=== PATIENT | female | born 1975 | race American Indian/Alaskan Native ===

== ENCOUNTER 2017-08-02 10:47 | Outpatient (CLI) | payer BC ==
--- NOTE | 2017-08-02 11:30 | Mammography Report ---
BILATERAL MAMMOGRAM: FINDINGS: The breast tissue is heterogeneously dense, which could obscure detection of small masses (approximately 50%-75% glandular). No mass, distortion, suspicious calcification, or skin change is seen. CAD was utilized. IMPRESSION: Negative mammogram. There is no mammographic evidence of malignancy. RECOMMENDATION: Follow-up per ACS guidelines. BI-RADS CATEGORY: 1 = Negative ACR BI-RADS MAMMOGRAPHIC CODES: 0 = Needs additional imaging evaluation; 1 = Negative; 2 = Benign; 3 = Probably benign; 4 = Suspicious; 5 = Malignant; 6 = Known biopsy-proven malignancy COMMENT: 1. Dense breast tissue, i.e., adenosis, fibrocystic changes, etc., may obscure an underlying neoplasm. 2. Approximately 10% of cancers are not detected with mammography. 3. A negative mammography report should not delay biopsy if a clinically suspicious mass is present. COMMENT: Patient follow-up letters are generated in [employer].
== END 2017-08-02 10:48 | disposition home or self-care (01) ==
LOC: SPVWC 10:47
PROVIDERS: ATTEND Advanced Practice Midwife
DX: Z12.31 Encounter for screening mammogram for malignant neoplasm of breast (principal)
CPT/HCPCS: 77067; G0202

== ENCOUNTER 2017-10-15 05:46 | Day surgery (SDC) | payer BC ==
[~2017-10-15 05:46] MED LIST: NACL 0.9% 1000 ML 1,000 ML IV SCH; PEPCID PO NR; VERSED IV NR
--- NOTE | 2017-10-15 06:52 | Short Stay Summary ---
Short Stay Documentation Date of service: 10/15/17 Narrative H&P: Pt is a 42yo BF LMP 10 years ago s/p PAYTON presents for surgical evaluation and treatment of persistent bilateral ovarian cysts - now right cyst 2.4 x 2cm and left cyst 5.3 x 3.6cm. CA125 and CEA both WNL. She is now scheduled for a Laproscopic Left ovarian cystectomy, possible Left Oophorectomy. - History Principal diagnosis: Bilateral ovarian cysts H&P: obtained from office Past Medical History: No medical history Past Surgical History: (x2), hysterectomy Social history: no significant social history, single - Allergies and Medications Current Medications: Allergies No Known Allergies Allergy (Unverified 10/12/17 17:42) Home Medications Medication Instructions Recorded Confirmed Last Taken Type No Known Home Medications [No 10/12/17 10/12/17 Unknown History Reported Home Medications] Active Medications Famotidine (Pepcid) 20 mg PO PREOP NR Stop: 10/15/17 23:00 Sodium Chloride (Nacl 0.9% 1000 Ml) 1,000 mls @ 100 mls/hr IV DIRECT NAVID Cefazolin Sodium (Ancef/Sterile Water 2 Gm/20 Ml) 2 gm in 20 mls @ 80 mls/hr IV PREOP NR PRN Reason: Protocol Midazolam HCl (Versed) 2 mg IV PREOP NR Stop: 10/15/17 23:00 - Physical exam General appearance: no acute distress Integumentary: no rash HEENT: Atraumatic Lungs: Clear to auscultation Breasts: deferred Heart: Regular rate Gastrointestinal: normal Female Genitourinary: deferred Rectal Exam: deferred Extremities: No edema Neurological: Normal gait, Normal speech - Brief post op/procedure progress note Date of procedure: 10/15/17 Pre-op diagnosis: Left ovarian cyst Post-op diagnosis: same (with extensive pelvic adhesions) Procedure: 1. Laproscopic left ovarian cystectomy 2. Lysis of extensive pelvic adhesions Anesthesia: GETA Findings: Absent uterus and cervix. Omental adhesions attached to the bladder flap. Large left ovarian cyst encased in omental adhesions. Normal right ovary. Normal appendix. Surgeon: SELWYN ROBLES Estimated blood loss: minimal Pathology: list (left ovarian cyst wall) Specimen disposition: to lab Condition: stable - Hospital course Hospital course: Unremarkable. - Disposition Condition at discharge: Good Disposition: DC-01 TO HOME OR SELFCARE - Discharge Diagnoses (1) Left ovarian cyst Status: Resolved Short Stay Discharge Plan Activity: no restrictions Diet: regular Wound: open to air, keep clean and dry Follow up with: OCTAVIO KIRKLAND MD [Primary Care Provider] - 7 Days SELWYN ROBLES MD [Staff Physician] - 14 Days Prescriptions: HYDROcodone/APAP 5-325 [[place] 5/325] 1 each PO Q6HR PRN #20 tablet PRN Reason: Pain Ibuprofen [Motrin] 800 mg PO Q8HR PRN #30 tablet PRN Reason: Moder Pain Unrelieved By [place]
[2017-10-15] MEDS ORDERED: MORPHINE IV PRN (06:59)
[2017-10-15] MEDS ORDERED: ZOFRAN IV PRN (06:59)
[2017-10-15] MEDS ORDERED: PERCOCET 5/325 PO PRN (06:59)
--- NOTE | 2017-10-15 06:59 | Anesthesia Consultation ---
Anesthesia Consult and Med Hx Date of service: 10/15/17 - Airway Anesthetic Teeth Evaluation: Good ROM Head & Neck: Adequate Mental/Hyoid Distance: Adequate Mallampati Class: Class II Intubation Access Assessment: Probably Good - Pulmonary Exam CTA: Yes - Cardiac Exam Cardiac Exam: RRR - Pre-Operative Health Status ASA Pre-Surgery Classification: ASA1 Proposed Anesthetic Plan: General - Central Nervous System Hx Psychiatric Problems: No - Other Systems Hx Alcohol Use: Yes (occas) Hx Cancer: No - Additional Comments Anesthesia Medical History Comments: HEALTHY
--- NOTE | 2017-10-15 06:59 | Anesthesia Day of Surgery ---
Anesthesia Day of Surgery - Day of Surgery Patient Examined: Yes Patient H&P Reviewed: Yes Patient is NPO: Yes
[2017-10-15] MEDS ORDERED: ANCEF/STERILE WATER 2 GM/20 ML 2 GM/20 ML SYRINGE IV NR (07:00)
[2017-10-15] MEDS ORDERED: DIPRIVAN 10 MG/ML IV ONE ×2 (07:20→09:04)
[2017-10-15] MEDS ORDERED: SUBLIMAZE ONE (07:20)
[2017-10-15] MEDS ORDERED: ZEMURON IV ONE (07:21)
[2017-10-15] MEDS ORDERED: XYLOCAINE MPF 2% ONE (07:21)
[2017-10-15 07:28] LABS: Hematocrit 37.4 % (30.3-42.9); Hemoglobin 12.5 gm/dl (10.1-14.3)
[2017-10-15] MEDS ORDERED: NACL 0.9% IR ONE ×2 (07:48)
[2017-10-15] MEDS ORDERED: MARCAINE 0.5% INFILTRATI ONE (07:48)
[2017-10-15] MEDS ORDERED: MARCAINE 0.5% 30 ML INFILTRATI ONE (07:48)
[2017-10-15] MEDS ORDERED: ZOFRAN ONE (08:07)
[2017-10-15] MEDS ORDERED: DECADRON ONE (08:07)
[2017-10-15] MEDS ORDERED: ROBINUL ONE (08:12)
[2017-10-15] MEDS ORDERED: NEOSTIGMINE ONE (08:12)
[2017-10-15] MEDS ORDERED: TORADOL ONE (08:19)
[2017-10-15] MEDS ORDERED: DILAUDID ONE (08:59)
--- NOTE | 2017-10-15 09:50 | Operative Report ---
Operative Report Operative Report: Date of procedure: 10/15/2017 Pre-operative diagnosis: 1. Pelvic pain 2. Persistent left ovarian cyst Post-operative diagnosis: Same with extensive pelvic adhesions Procedure name(s): 1. laparoscopic left ovarian cystectomy 2. Lysis of extensive pelvic adhesions Surgeon: Santiago Burgess MD Machinist Brake: None Anesthesia: Gen. endotracheal intubation by Dr. Gómez EBL: 10 mL's Findings: Absent uterus and cervix. Extensive omental adhesions obscuring the left ovarian cyst. A large left ovarian cyst. Normal right ovary. Normal appendix. Procedure: After the patient was correctly identified, she was prepped and draped in usual sterile fashion and placed in the dorsolithotomy position. First the bladder was emptied using a straight catheter, and the speculum was placed in the vaginal vault. The cervix was absent, thus a sponge stick was placed in the vagina. Attention was then turned to the abdomen where first a periumbilical incision was made using the skin knife, and the Optiview trocar was inserted under direct visualization. After an adequate amount of abdominal insufflation, visualization of the pelvic organs found a large left ovarian cyst obscured by extensive omental adhesions down to the bladder flap. The uterus was absent, and the right ovary appeared to be normal. The appendix was also normal. Next a suprapubic incision and the left lateral incision was made through which 5 mm trochars were placed in order to aid in manipulation of the pelvic organs. The extensive omental adhesions were taken down using sharp and blunt dissection. The left ovarian cyst was excised, spilling clear straw colored fluid. The cyst wall was excised and sent to pathology. Copious amounts of irrigation was then performed, and good hemostasis was assured. Omental adhesions to the right pelvic sidewall was also taken down. The Tisseel sealant was sprayed across the excision sites,and the procedure was considered complete. All instruments were removed from the abdomen. The abdomen was deflated, and the periumbilical incision was closed using 0 Vicryl suture in a [id number] configuration fascia followed by 4-0 Monocryl suture in a subcuticular fashion on the skin. The suprapubic and left lateral incisions were closed in similar fashion. Each incision was infiltrated using 0.5% Marcaine solution. The vaginal sponge was removed. The patient tolerated the procedure well and was transported to recovery in stable condition.
--- NOTE | 2017-10-15 11:30 | Post Anesthesia Evaluation ---
- Post Anesthesia Evaluation Patient Participated: Yes Airway Patent: Yes Stable Respiratory Function: Yes Nausea/Vomiting: No Temp > 96.8F: Yes Pain Manageable: Yes Adequeate Hydration: Yes Anesthesia Complications: No Block Receding Appropriately: Not Applicable Patient on Ventilator: No
[2017-10-15 11:31] VITALS: BP 119/76
== END 2017-10-15 12:05 | disposition home or self-care (01) ==
LOC: OR 05:46
PROVIDERS: ATTEND Obstetrics & Gynecology
DX: D27.1 Benign neoplasm of left ovary (principal); K66.0 Peritoneal adhesions (postprocedural) (postinfection); Z90.710 Acquired absence of both cervix and uterus; Z98.890 Other specified postprocedural states
CPT/HCPCS: 36415; 49329; 58662; 85014; 85018; 88307; A4217; C9250; J0690; J1100; J1170; J1885; J2250; J2270; J2405; J2704; J2710; J3010; J7030; 88305

== ENCOUNTER 2019-10-03 06:12 | Day surgery (SDC) | payer BC ==
[2019-10-03] MEDS ORDERED: BUPIVACAINE/PF (0.5%) 5 MG/1 ML 30 ML VIAL INFILTRATI ONE ×3 (06:46→09:16)
--- NOTE | 2019-10-03 07:19 | Anesthesia Day of Surgery ---
Anesthesia Day of Surgery - Day of Surgery Patient Examined: Yes Patient H&P Reviewed: Yes Patient is NPO: Yes
[2019-10-03] MEDS ORDERED: ONDANSETRON 4 MG/2 ML INJ IV PRN (07:22)
--- NOTE | 2019-10-03 07:22 | Anesthesia Consultation ---
Anesthesia Consult and Med Hx Date of service: 10/03/19 - Airway Anesthetic Teeth Evaluation: Chipped ROM Head & Neck: Adequate Mental/Hyoid Distance: Adequate Mallampati Class: Class III Intubation Access Assessment: Probably Good - Pre-Operative Health Status ASA Pre-Surgery Classification: ASA1 Proposed Anesthetic Plan: General - Central Nervous System Hx Psychiatric Problems: No - Other Systems Hx Alcohol Use: Yes (occas) Hx Cancer: No
[2019-10-03] MEDS ORDERED: ACETAMINOPHEN 500 MG TAB PO NR (07:23)
[2019-10-03] MEDS ORDERED: MAGNESIUM OXIDE 400 MG TAB PO NR (07:23)
[2019-10-03] MEDS ORDERED: PROPOFOL 200 MG/20 ML VIAL IV ONE (07:32)
[2019-10-03] MEDS ORDERED: LIDOCAINE MPF (2%) 20 MG/1 ML VIAL 5 ML ONE (07:33)
[2019-10-03] MEDS ORDERED: ROCURONIUM 50 MG/5 ML INJ IV ONE (07:34)
[2019-10-03] MEDS ORDERED: LACTATED RINGERS 1,000 ML IV SCH (08:00)
[2019-10-03] MEDS ORDERED: GABAPENTIN 300 MG CAP PO NR (08:00)
[2019-10-03] MEDS ORDERED: CELECOXIB 200 MG CAP PO NR (08:00)
--- NOTE | 2019-10-03 08:03 | Short Stay Summary ---
Short Stay Documentation Date of service: 10/03/19 Narrative H&P: Pt is a 44yo BF LMP s/p PAYTON 13 years ago presents for surgical evaluation and treatment of bilateral ovarian cysts -right measuring 4.3 x 2.5cm and left 9.2 x 4.4cm with thick fluid. She has pelvic pain and desires Bilateral ovarian cystectomy, possible bilateral oophorectomy. CA125 - 4.0 (WNL). - History Principal diagnosis: Bilateral ovarian masses H&P: obtained from office Past Medical History: No medical history Past Surgical History: , hysterectomy Social history: no significant social history, - Allergies and Medications Current Medications: Allergies No Known Allergies Allergy (Verified 10/03/19 06:45) Home Medications Medication Instructions Recorded Confirmed Last Taken Type No Known Home Medications [No 10/02/19 10/02/19 Unknown History Reported Home Medications] Active Medications Acetaminophen (Tylenol) 1,000 mg PO ONCE NR Stop: 10/03/19 13:00 Celecoxib (Celebrex) 200 mg PO PREOP NR Stop: 10/03/19 13:00 Fentanyl (Sublimaze) 50 mcg IV Q5MIN PRN PRN Reason: Pain , Severe (7-10) Stop: 10/03/19 23:00 Gabapentin (Gabapentin) 300 mg PO PREOP NR Stop: 10/03/19 13:00 Lactated Ringer's (Lactated Ringers) 1,000 mls @ 125 mls/hr IV DIRECT NAVID Magnesium Oxide (Mag-Ox) 400 mg PO ONCE NR Stop: 10/03/19 16:00 Ondansetron HCl (Zofran) 4 mg IV ONCE PRN PRN Reason: Nausea And Vomiting Stop: 10/03/19 16:00 - Physical exam General appearance: mild distress HEENT: Atraumatic Lungs: Clear to auscultation Breasts: deferred Heart: Regular rate Gastrointestinal: normal Female Genitourinary: deferred Rectal Exam: deferred Extremities: no ischemia, No edema Neurological: Normal gait, Normal speech - Brief post op/procedure progress note Date of procedure: 10/03/19 Pre-op diagnosis: 1. Pelvic pain 2. Bilateral ovarian cysts Post-op diagnosis: same Procedure: 1. Laproscopic Bilateral SalpingoOophorectomy 2. Lysis of pelvic adhesions Anesthesia: GETA Findings: Absent uterus and cervix. A large 10cm multiloculated left ovarian cyst, and a smaller 5cm multiloculated right ovarian cyst. Bilateral pelvic adhesions. Surgeon: SELWYN ROBLES Estimated blood loss: 50-100ml Pathology: list (Right and left ovarian masses) Specimen disposition: to lab Condition: stable - Hospital course Hospital course: Unremarkable. - Disposition Condition at discharge: Good Disposition: DC- TO HOME OR SELFCARE - Discharge Diagnoses (1) Pelvic pain Status: Chronic (2) Bilateral ovarian cysts Status: Resolved Short Stay Discharge Plan Activity: no restrictions Diet: regular Wound: open to air, keep clean and dry Follow up with: PRIMARY CARE, [Primary Care Provider] - 7 Days SELWYN ROBLES MD [Staff Physician] - 14 Days Prescriptions: HYDROcodone/APAP 5-325 [[place] 5/325] 1 each PO Q6HR PRN #20 tablet PRN Reason: Pain
[2019-10-03] MEDS ORDERED: MIDAZOLAM 2 MG/2 ML INJ IV NR (08:12)
[2019-10-03] MEDS ORDERED: ceFAZolin/STERILE WATER 2 GM/20 ML SYRINGE IV NR (08:13)
[2019-10-03 08:24] LABS: Hematocrit 38.2 % (30.3-42.9); Hemoglobin 12.9 gm/dl (10.1-14.3)
[2019-10-03] MEDS ORDERED: dexAMETHasone 20 MG/5 ML VIAL ONE (08:38)
[2019-10-03] MEDS ORDERED: ONDANSETRON 4 MG/2 ML INJ ONE (08:38)
[2019-10-03] MEDS ORDERED: KETOROLAC 30 MG/1 ML INJ ONE (08:59)
[2019-10-03] MEDS ORDERED: ceFAZolin/Water 2 GM/20 ML 2 GM/20 ML SYRINGE IV NR (09:00)
[2019-10-03] MEDS ORDERED: NEOSTIGMINE 10MG/10 ML INJ MDV ONE (09:46)
[2019-10-03] MEDS ORDERED: GLYCOPYRROLATE 0.4 MG/2 ML INJ ONE (09:46)
[2019-10-03] MEDS: fentaNYL 100 MCG/2 ML INJ IV PRN ×3 (10:19→10:41)
[2019-10-03 10:49] VITALS: BP 117/69
--- NOTE | 2019-10-04 14:59 | Operative Report ---
Operative Report Operative Report: Date of procedure: 10/03/2019 Pre-operative diagnosis: 1. Pelvic pain 2. Bilateral ovarian cysts Post-operative diagnosis: Same Procedure name(s): 1. Laparoscopic Bilateral SalpingoOophorectomy 2. Lysis of pelvic adhesions Surgeon: Dr. Santiago Burgess Slotter Operator Helper: None Anesthesia: Gen. endotracheal intubation EBL: Minimal less than 50mls Findings: Absent uterus and cervix. A large 10cm multi-loculated left ovarian cyst, and a smaller 5cm multi-loculated right ovarian cyst, both within the cu l-de-sac with bilateral pelvic adhesions. Procedure: After the patient was correctly identified, she was prepped and draped in the usual sterile fashion and placed in the dorsolithotomy position. Next the bladder was emptied using Ang catheter, and the speculum was placed in the vaginal vault. The cervix was absent, thus a sponge stick was placed in the vagina. Attention was then turned to the abdomen where a periumbilical incision was made using the skin knife, and the Optiview trocar was inserted under direct visualization. After adequate amount of abdominal insufflation, visualization of the pelvic organs found the uterus to be absent. The large 10cm multi-loculated left ovarian cyst was adherent within the pelvic cul-de-sac, and the smaller 5cm multi-loculated right ovarian cyst was also adherent within the pelvic cul-de-sac. A suprapubic and a left lateral incision was made through which 5 mm trochars were placed in order to aid in manipulation of the pelvic organs. The left infundibulo-pelvic ligament was clamped, cauterized and cut using the Tripolar cautery, and the pelvic adhesions taken down with sharp dissection, thus freeing the left ovarian mass from the pelvic sidewall and cul-de-sac. In the process of dissecting the left ovarian cyst, it leaked blood tinged fluid, but the specimen was placed in the Endopouch, removed, and sent to pathology. The right infundibulo-pelvic ligament was also clamped, cauterized and cut using the Tripolar cautery, until the multiloculated cystic ovarian mass was released from the right ovarian fossa, and it was placed in an Endopouch, removed, and sent to pathology. Copious amounts of irrigation was then performed, and the procedure was considered complete. The oophorectomy sites were made hemostatic using cauterization, and sprayed with the Tisseel Sealant, and excellent hemostasis was assured. Interceed was also placed at the excision sites. All instruments were removed from the abdomen. The abdomen was defl ated, and the periumbilical incision was closed using 0 Vicryl suture in a [id number] configuration on the fascia followed by 4-O Monocryl suture in a sub-cuticular fashion on the skin. The suprapubic and left lateral incisions were closed in similar fashion. Each incision was infiltrated using 0.5% Marcaine Solution. The vaginal sponge stick was removed. The Ang catheter also removed. The patient tolerated the procedure well and was transferred to recovery in stable condition.
== END 2019-10-03 11:40 | disposition home or self-care (01) ==
LOC: OR 06:12
PROVIDERS: ATTEND Obstetrics & Gynecology
DX: N83.201 Unspecified ovarian cyst, right side (principal); N83.202 Unspecified ovarian cyst, left side; D28.2 Benign neoplasm of uterine tubes and ligaments; Z79.899 Other long term (current) drug therapy; Z90.710 Acquired absence of both cervix and uterus; Z98.891 History of uterine scar from previous surgery; Z72.89 Other problems related to lifestyle; Z98.890 Other specified postprocedural states
CPT/HCPCS: 36415; 58661; 85014; 85018; 88305; 88307; C1765; C9250; J0690; J1100; J1885; J2250; J2405; J2704; J2710; J3010; J7120